=== PATIENT | female | born 1985 | race Caucasian/White ===

== ENCOUNTER 2016-11-17 13:51 | Emergency (ER) | payer OTHER ==
[~2016-11-17] VITALS: Ht 165.1 cm; Wt 100.0 kg
[~2016-11-17 13:51] MED LIST: CIPRO500 MG OR; FLOXIN OTIC OT; LORTAB 5 OR; LORTAB 5-325 MG1 TAB PO; PHENERGAN25 MG/TAB PO; ULTRAM50 M1 PO; ZITHROMAX250 MG PO
[2016-11-17 15:32] LABS: HEMATOCRIT 41.8 % (37.0-47.0); HEMOGLOBIN 13.8 g/dl (12.0-16.0); IMMATURE GRANULOCYTES 0.3 % (0.0-1.0); MEAN CELL VOLUME 87.3 fL CALC (80.0-100.0); MEAN CORPUSCULAR HGB 28.8 pG CALC (26.0-32.0); NEUT# 7.58 thou/uL (2.00-7.15); RED BLOOD COUNT 4.79 mill/uL (4.20-5.60)
[2016-11-17 15:44] LABS: ALBUMIN 4.2 g/dL (3.2-5.0); ALKALINE PHOSPHATASE 100 u/l (38-126); ANION GAP 17 (6-22 (CALC)); BILIRUBIN, TOTAL 0.6 mg/dL (0.0-1.4); BUN 11 mg/dL (7-17); BUN/CREATININE RATIO 14 (12-20 (CALC)); CALCIUM 9.2 mg/dL (8.4-10.2); CARBON DIOXIDE 23 mmol/l (22-30); CHLORIDE 104 mmol/l (95-108); CREATININE 0.7 mg/dL (0.5-1.0); GFR > 60 ML/MIN (>=60 (CALC)); GFR FOR AFR.AMER. > 60 ML/MIN (>=60 (CALC)); GLUCOSE 84 mg/dL (65-105); POTASSIUM 4.5 mmol/l (3.5-5.1); SGOT/AST 49 u/l (14-36); SGPT/ALT 55 u/l (9-52); SODIUM 139 mmol/l (137-146); TOTAL PROTEIN 7.4 g/dL (6.3-8.2)
[2016-11-17 18:48] VITALS: BP 118/74
[2016-11-17] MEDS ORDERED: IBUPROFEN600 MG PO (18:51)
== END 2016-11-17 19:01 | disposition home or self-care (01) | DRG 605 ==
LOC: ED 13:51
PROVIDERS: Emergency Medicine
DX: S00.83XA Contusion of other part of head, initial encounter (principal); S63.91XA Sprain of unspecified part of right wrist and hand, initial encounter; S50.11XA Contusion of right forearm, initial encounter; S60.221A Contusion of right hand, initial encounter; V49.59XA Passenger injured in collision with other motor vehicles in traffic accident, initial encounter; Y92.414 Local residential or business street as the place of occurrence of the external cause

== ENCOUNTER 2016-11-19 15:21 | Emergency (ER) | payer OTHER ==
[~2016-11-19] VITALS: Ht 165.1 cm; Wt 107.0 kg
[~2016-11-19 15:21] MED LIST changes: +IBUPROFEN600 MG PO
[2016-11-19] MEDS ORDERED: FOLIC ACID1 MG PO (15:32)
[2016-11-19] MEDS ORDERED: B121000 MCG PO (15:33)
[2016-11-19 16:08] VITALS: BP 125/60
[2016-11-19] MEDS ORDERED: LORTAB 5-325 MG1 TAB PO (16:22)
== END 2016-11-19 16:08 | disposition home or self-care (01) | DRG 950 ==
LOC: ED 15:21
DX: S63.91XD Sprain of unspecified part of right wrist and hand, subsequent encounter (principal); V59.5 Passenger in pick-up truck or van injured in collision with other and unspecified motor vehicles in traffic accident

== ENCOUNTER 2017-01-09 12:55 | Emergency (ER) | payer OTHER ==
[~2017-01-09] VITALS: Ht 165.1 cm; Wt 107.0 kg
[~2017-01-09 12:55] MED LIST changes: +B121000 MCG PO; +FOLIC ACID1 MG PO
[2017-01-09 13:39] LABS: URINE BILIRUBIN - DIPSTICK NEGATIVE (NEGATIVE); URINE BLOOD DIPSTICK TRACE-INTACT (NEGATIVE); URINE CLARITY CLEAR; URINE COLOR YELLOW; URINE GLUCOSE - DIPSTICK NEGATIVE (NEGATIVE); URINE KETONE NEGATIVE (NEGATIVE); URINE LEUK ESTERASE NEGATIVE (NEGATIVE); URINE NITRITE - DIPSTICK NEGATIVE (Negative); URINE PROTEIN - DIPSTICK NEGATIVE (NEG-TRACE); URINE SPECIFIC GRAVITY 1.025; URINE UROBILINOGEN - DIPSTICK 0.2 E.U./dL (0.2)
[2017-01-09 13:56] LABS: INFLUENZA A NONE DETECTED (NONE DETECT); INFLUENZA B NONE DETECTED (NONE DETECT)
[2017-01-09] MEDS ORDERED: AMOXICILLIN500 MG PO (14:09)
[2017-01-09 14:10] VITALS: BP 124/76
== END 2017-01-09 14:10 | disposition home or self-care (01) | DRG 153 ==
LOC: ED 12:55
PROVIDERS: Emergency Medicine
DX: J02.0 Streptococcal pharyngitis (principal); F17.210 Nicotine dependence, cigarettes, uncomplicated; R11.2 Nausea with vomiting, unspecified; R19.7 Diarrhea, unspecified

== ENCOUNTER 2017-01-16 10:53 | Emergency (ER) | payer OTHER ==
[~2017-01-16] VITALS: Ht 165.1 cm; Wt 60.0 kg
[~2017-01-16 10:53] MED LIST changes: +AMOXICILLIN500 MG PO
[2017-01-16] MEDS ORDERED: PHENERGAN25 MG/TAB PO (13:03)
[2017-01-16] MEDS ORDERED: ROBITUSSIN AC10 ML PO (13:03)
[2017-01-16] MEDS ORDERED: KEFLEX500 M1 PO (13:03)
[2017-01-16 13:18] VITALS: BP 131/76
== END 2017-01-16 13:18 | disposition home or self-care (01) | DRG 153 ==
LOC: ED 10:53
DX: J06.9 Acute upper respiratory infection, unspecified (principal); I88.9 Nonspecific lymphadenitis, unspecified; F90.9 Attention-deficit hyperactivity disorder, unspecified type; F31.9 Bipolar disorder, unspecified; F17.210 Nicotine dependence, cigarettes, uncomplicated

== ENCOUNTER 2018-03-02 23:23 | Emergency (ER) | payer OTHER ==
[~2018-03-02] VITALS: Ht 165.1 cm; Wt 103.0 kg
[~2018-03-02 23:23] MED LIST changes: +KEFLEX500 M1 PO; +ROBITUSSIN AC10 ML PO
[2018-03-03 01:12] LABS: HEMATOCRIT 40.6 % (37.0-47.0); HEMOGLOBIN 13.5 g/dl (12.0-16.0); IMMATURE GRANULOCYTES 0.3 % (0.0-1.0); MEAN CELL VOLUME 87.3 fL CALC (80.0-100.0); MEAN CORPUSCULAR HGB CONC 33.3 g/L CALC (32.0-36.0); NEUT# 5.02 thou/uL (2.00-7.15); RED BLOOD COUNT 4.65 mill/uL (4.20-5.60); RED CELL DISTRI WIDTH 13.5 % (11.5-15.5)
[2018-03-03 01:13] LABS: URINE BILIRUBIN - DIPSTICK NEGATIVE (NEGATIVE); URINE BLOOD DIPSTICK NEGATIVE (NEGATIVE); URINE COLOR YELLOW; URINE GLUCOSE - DIPSTICK NEGATIVE (NEGATIVE); URINE KETONE NEGATIVE (NEGATIVE); URINE LEUK ESTERASE NEGATIVE (NEGATIVE); URINE NITRITE - DIPSTICK NEGATIVE (Negative); URINE PH 7.5 (4.5-8.0); URINE PROTEIN - DIPSTICK NEGATIVE (NEG-TRACE); URINE SPECIFIC GRAVITY 1.015; URINE UROBILINOGEN - DIPSTICK 0.2 E.U./dL (0.2)
[2018-03-03 01:17] LABS: URINE CLARITY HAZY
[2018-03-03 01:29] LABS: ALBUMIN 3.9 g/dL (3.2-5.0); ALKALINE PHOSPHATASE 89 u/l (38-126); AMYLASE 50 u/l (30-110); ANION GAP 10 (6-22 (CALC)); BILIRUBIN, TOTAL 0.2 mg/dL (0.0-1.4); BUN 11 mg/dL (7-17); BUN/CREATININE RATIO 11 (12-20 (CALC)); CARBON DIOXIDE 27 mmol/l (22-30); CHLORIDE 108 mmol/l (95-108); GFR > 60 ML/MIN (>=60 (CALC)); GFR FOR AFR.AMER. > 60 ML/MIN (>=60 (CALC)); LIPASE 86 u/l (23-300); POTASSIUM 3.6 mmol/l (3.5-5.1); SGOT/AST 20 u/l (14-36); SGPT/ALT 39 u/l (9-52); SODIUM 142 mmol/l (137-146); TOTAL PROTEIN 6.9 g/dL (6.3-8.2)
[2018-03-03] MEDS ORDERED: PERCOCET 5/325M1 TAB PO (06:52)
[2018-03-03 07:01] VITALS: BP 92/55
== END 2018-03-03 07:01 | disposition home or self-care (01) | DRG 761 ==
LOC: ED 23:23
PROVIDERS: Emergency Medicine
DX: N83.201 Unspecified ovarian cyst, right side (principal); R10.9 Unspecified abdominal pain; J45.909 Unspecified asthma, uncomplicated; F17.210 Nicotine dependence, cigarettes, uncomplicated
CPT/HCPCS: Q9967

== ENCOUNTER 2018-03-07 23:42 | Emergency (ER) | payer OTHER ==
[~2018-03-07] VITALS: Ht 165.1 cm; Wt 106.8 kg
[~2018-03-07 23:42] MED LIST changes: +PERCOCET 5/325M1 TAB PO
[2018-03-08] MEDS ORDERED: MOTRIN800 MG PO (00:24)
[2018-03-08 00:40] VITALS: BP 117/76
== END 2018-03-08 00:45 | disposition home or self-care (01) | DRG 538 ==
LOC: ED 23:42
DX: S76.911A Strain of unspecified muscles, fascia and tendons at thigh level, right thigh, initial encounter (principal); M25.551 Pain in right hip; J45.909 Unspecified asthma, uncomplicated; N83.209 Unspecified ovarian cyst, unspecified side; F17.210 Nicotine dependence, cigarettes, uncomplicated; X50.0XXA Overexertion from strenuous movement or load, initial encounter; Z87.442 Personal history of urinary calculi

== ENCOUNTER 2018-05-20 23:03 | Emergency (ER) | payer OTHER ==
[~2018-05-20] VITALS: Ht 167.6 cm; Wt 104.6 kg
[~2018-05-20 23:03] MED LIST changes: +MOTRIN800 MG PO
[2018-05-21 00:10] LABS: HEMATOCRIT 44.6 % (37.0-47.0); HEMOGLOBIN 14.8 g/dl (12.0-16.0); IMMATURE GRANULOCYTES 0.3 % (0.0-5.0); MEAN CELL VOLUME 89.4 fL CALC (80.0-100.0); MEAN CORPUSCULAR HGB 29.7 pG CALC (26.0-32.0); MEAN CORPUSCULAR HGB CONC 33.2 g/L CALC (32.0-36.0); NEUT# 6.49 thou/uL (2.00-7.15); RED BLOOD COUNT 4.99 mill/uL (4.20-5.60); RED CELL DISTRI WIDTH 13.2 % (11.5-15.5)
[2018-05-21 00:12] LABS: URINE BILIRUBIN - DIPSTICK NEGATIVE (NEGATIVE); URINE BLOOD DIPSTICK NEGATIVE (NEGATIVE); URINE COLOR YELLOW; URINE GLUCOSE - DIPSTICK NEGATIVE (NEGATIVE); URINE KETONE NEGATIVE (NEGATIVE); URINE LEUK ESTERASE NEGATIVE (NEGATIVE); URINE NITRITE - DIPSTICK NEGATIVE (Negative); URINE PROTEIN - DIPSTICK NEGATIVE (NEG-TRACE); URINE SPECIFIC GRAVITY 1.015; URINE UROBILINOGEN - DIPSTICK 0.2 E.U./dL (0.2)
[2018-05-21 00:14] LABS: URINE CLARITY SL CLOUDY
[2018-05-21 00:21] LABS: ALBUMIN 4.1 g/dL (3.2-5.0); ALKALINE PHOSPHATASE 88 u/l (38-126); AMYLASE 53 u/l (30-110); ANION GAP 18 (6-22 (CALC)); BILIRUBIN, TOTAL 0.4 mg/dL (0.0-1.4); BUN 12 mg/dL (7-17); BUN/CREATININE RATIO 18 (12-20 (CALC)); CARBON DIOXIDE 20 mmol/l (22-30); CHLORIDE 111 mmol/l (95-108); CREATININE 0.7 mg/dL (0.5-1.0); GFR > 60 ML/MIN (>=60 (CALC)); GFR FOR AFR.AMER. > 60 ML/MIN (>=60 (CALC)); LIPASE 63 u/l (23-300); POTASSIUM 4.5 mmol/l (3.5-5.1); SGOT/AST 19 u/l (14-36); SGPT/ALT 23 u/l (9-52); SODIUM 144 mmol/l (137-146); TOTAL PROTEIN 7.4 g/dL (6.3-8.2)
[2018-05-21] MEDS ORDERED: BENTYL10 MG PO (00:59)
[2018-05-21] MEDS ORDERED: MIRALAX3350 N1 PO (00:59)
[2018-05-21 01:29] VITALS: BP 110/70
== END 2018-05-21 01:29 | disposition home or self-care (01) ==
LOC: ED 23:03
PROVIDERS: Family Medicine
DX: K59.00 Constipation, unspecified (principal); J45.909 Unspecified asthma, uncomplicated; Z87.442 Personal history of urinary calculi; Z87.440 Personal history of urinary (tract) infections; F17.210 Nicotine dependence, cigarettes, uncomplicated; R10.31 Right lower quadrant pain; R10.11 Right upper quadrant pain; R11.0 Nausea

== ENCOUNTER 2018-06-16 16:17 | Emergency (ER) | payer OTHER ==
[~2018-06-16] VITALS: Ht 167.6 cm; Wt 107.1 kg
[~2018-06-16 16:17] MED LIST changes: +BENTYL10 MG PO; +MIRALAX3350 N1 PO
[2018-06-16] MEDS ORDERED: ZITHROMAX250 MG PO (16:47)
[2018-06-16] MEDS ORDERED: PROVENTIL108 MCG/AC IN (16:47)
[2018-06-16 16:50] VITALS: BP 112/64
== END 2018-06-16 16:50 | disposition home or self-care (01) ==
LOC: ED 16:17
DX: J20.9 Acute bronchitis, unspecified (principal); J02.9 Acute pharyngitis, unspecified; J45.909 Unspecified asthma, uncomplicated; F17.210 Nicotine dependence, cigarettes, uncomplicated; R05 Cough

== ENCOUNTER 2018-09-14 16:37 | Emergency (ER) | payer OTHER ==
[~2018-09-14] VITALS: Ht 167.6 cm; Wt 107.6 kg
[~2018-09-14 16:37] MED LIST changes: +PROVENTIL108 MCG/AC IN
[2018-09-14 18:06] VITALS: BP 123/87
== END 2018-09-14 18:09 | disposition home or self-care (01) ==
LOC: ED 16:37
DX: S63.601A Unspecified sprain of right thumb, initial encounter (principal); F17.210 Nicotine dependence, cigarettes, uncomplicated; N91.2 Amenorrhea, unspecified; X50.3XXA Overexertion from repetitive movements, initial encounter

== ENCOUNTER 2018-09-28 16:58 | Emergency (ER) | payer OTHER ==
[~2018-09-28] VITALS: Ht 167.6 cm; Wt 100.0 kg
[2018-09-28] MEDS ORDERED: TESSALON PERLE100 MG PO (18:43)
[2018-09-28] MEDS ORDERED: ZITHROMAX500 MG PO (18:43)
[2018-09-28] MEDS ORDERED: VENTOLIN HFA IN (18:43)
[2018-09-28] MEDS ORDERED: PREDNISONE20 MG PO (18:44)
[2018-09-28 18:58] VITALS: BP 112/79
== END 2018-09-28 18:58 | disposition home or self-care (01) ==
LOC: ED 16:58
DX: R05 Cough (principal); J02.9 Acute pharyngitis, unspecified; R50.9 Fever, unspecified; F31.9 Bipolar disorder, unspecified; F17.210 Nicotine dependence, cigarettes, uncomplicated; R06.2 Wheezing; R09.81 Nasal congestion

== ENCOUNTER 2018-11-12 21:17 | Emergency (ER) | payer OTHER ==
[~2018-11-12] VITALS: Ht 167.6 cm; Wt 97.7 kg
[~2018-11-12 21:17] MED LIST changes: +PREDNISONE20 MG PO; +TESSALON PERLE100 MG PO; +VENTOLIN HFA IN; +ZITHROMAX500 MG PO
[2018-11-12 22:11] LABS: HEMATOCRIT 43.4 % (37.0-47.0); HEMOGLOBIN 14.1 g/dl (12.0-16.0); IMMATURE GRANULOCYTES 0.4 % (0.0-5.0); MEAN CELL VOLUME 88.6 fL CALC (80.0-100.0); MEAN CORPUSCULAR HGB 28.8 pG CALC (26.0-32.0); MEAN CORPUSCULAR HGB CONC 32.5 g/L CALC (32.0-36.0); NEUT# 3.69 thou/uL (2.00-7.15); RED BLOOD COUNT 4.9 mill/uL (4.20-5.60); RED CELL DISTRI WIDTH 13.2 % (11.5-15.5)
[2018-11-12 22:13] LABS: URINE BILIRUBIN - DIPSTICK NEGATIVE (NEGATIVE); URINE BLOOD DIPSTICK NEGATIVE (NEGATIVE); URINE COLOR YELLOW; URINE GLUCOSE - DIPSTICK NEGATIVE (NEGATIVE); URINE KETONE NEGATIVE (NEGATIVE); URINE LEUK ESTERASE NEGATIVE (NEGATIVE); URINE NITRITE - DIPSTICK NEGATIVE (Negative); URINE PROTEIN - DIPSTICK NEGATIVE (NEG-TRACE); URINE SPECIFIC GRAVITY >=1.030; URINE UROBILINOGEN - DIPSTICK 0.2 E.U./dL (0.2)
[2018-11-12 22:25] LABS: ALBUMIN 3.9 g/dL (3.2-5.0); ALKALINE PHOSPHATASE 68 u/l (38-126); AMYLASE 39 u/l (30-110); ANION GAP 11 (6-22 (CALC)); BILIRUBIN, TOTAL 0.5 mg/dL (0.0-1.4); BUN 7 mg/dL (7-17); BUN/CREATININE RATIO 9 (12-20 (CALC)); CARBON DIOXIDE 26 mmol/l (22-30); CHLORIDE 106 mmol/l (95-108); CREATININE 0.8 mg/dL (0.5-1.0); GFR > 60 ML/MIN (>=60 (CALC)); GFR FOR AFR.AMER. > 60 ML/MIN (>=60 (CALC)); LIPASE 46 u/l (23-300); POTASSIUM 4.1 mmol/l (3.5-5.1); SGOT/AST 20 u/l (14-36); SODIUM 139 mmol/l (137-146); TOTAL PROTEIN 6.9 g/dL (6.3-8.2)
[2018-11-13] MEDS ORDERED: NAPROSYN500 MG PO (00:11)
[2018-11-13 00:37] VITALS: BP 121/84
== END 2018-11-13 00:33 | disposition home or self-care (01) ==
LOC: ED 21:17
PROVIDERS: Emergency Medicine
DX: R10.12 Left upper quadrant pain (principal); R10.11 Right upper quadrant pain; R10.811 Right upper quadrant abdominal tenderness; N83.202 Unspecified ovarian cyst, left side

== ENCOUNTER 2019-02-12 12:32 | Emergency (ER) | payer OTHER ==
[~2019-02-12] VITALS: Ht 167.6 cm; Wt 82.0 kg
[~2019-02-12 12:32] MED LIST changes: +NAPROSYN500 MG PO
[2019-02-12] MEDS ORDERED: ORPHENADRINE100 MG PO (13:53)
[2019-02-12] MEDS ORDERED: FIORICET PO (13:53)
[2019-02-12 14:17] VITALS: BP 110/70
== END 2019-02-12 14:22 | disposition home or self-care (01) ==
LOC: ED 12:32
DX: S16.1XXA Strain of muscle, fascia and tendon at neck level, initial encounter (principal); F17.210 Nicotine dependence, cigarettes, uncomplicated; W22.8XXA Striking against or struck by other objects, initial encounter; Y93.I1 Activity, roller coaster riding; R51 Headache

== ENCOUNTER 2019-12-15 | Emergency (ER) | payer OTHER ==
[~2019-12-15] MED LIST changes: +FIORICET PO; +ORPHENADRINE100 MG PO
== END 2019-12-15 20:10 | disposition home or self-care (01) ==
DX: S00.35XA Superficial foreign body of nose, initial encounter (principal); F17.210 Nicotine dependence, cigarettes, uncomplicated; X58.XXXA Exposure to other specified factors, initial encounter

== ENCOUNTER 2021-02-10 12:03 | Emergency (ER) | payer OTHER ==
[~2021-02-10] VITALS: Ht 167.6 cm; Wt 91.0 kg
[2021-02-10] MEDS ORDERED: TOPIRAMATE100 MG PO (12:19)
[2021-02-10 12:30] LABS: HEMATOCRIT 44.4 % (37.0-47.0); HEMOGLOBIN 14.3 g/dl (12.0-16.0); IMMATURE GRANULOCYTES 0.4 % (0.0-5.0); MEAN CELL VOLUME 88.4 fL CALC (80.0-100.0); MEAN CORPUSCULAR HGB 28.5 pG CALC (26.0-32.0); MEAN CORPUSCULAR HGB CONC 32.2 g/dL CAL (32.0-36.0); NEUT# 3.21 thou/uL (2.00-7.15); RED BLOOD COUNT 5.02 mill/uL (4.20-5.60)
[2021-02-10 12:38] LABS: ALKALINE PHOSPHATASE 81 u/l (38-126); BILIRUBIN, TOTAL 0.3 mg/dL (0.0-1.4); BUN 9 mg/dL (7-17); BUN/CREATININE RATIO 12 (12-20 (CALC)); CHLORIDE 110 mmol/l (95-108); CREATININE 0.7 mg/dL (0.5-1.0); GFR > 60 ML/MIN (>=60 (CALC)); GFR FOR AFR.AMER. > 60 ML/MIN (>=60 (CALC)); LIPASE 52 u/l (23-300); POTASSIUM 3.9 mmol/l (3.5-5.1); SGOT/AST 26 u/l (14-36); SODIUM 138 mmol/l (137-146); TOTAL PROTEIN 7.5 g/dL (6.3-8.2)
[2021-02-10 12:39] LABS: ANION GAP 12 (6-22 (CALC)); CARBON DIOXIDE 20 mmol/l (22-30)
[2021-02-10 13:00] LABS: GFR > 60 ML/MIN (>=60 (CALC)); GFR FOR AFR.AMER. > 60 ML/MIN (>=60 (CALC))
[2021-02-10 13:54] VITALS: BP 107/73
== END 2021-02-10 14:00 | disposition home or self-care (01) | DRG 90 ==
LOC: ED 12:03
PROVIDERS: Family Medicine
DX: S06.0X9A Concussion with loss of consciousness of unspecified duration, initial encounter (principal); R10.11 Right upper quadrant pain; F31.9 Bipolar disorder, unspecified; J45.909 Unspecified asthma, uncomplicated; F17.200 Nicotine dependence, unspecified, uncomplicated; V57.6XXA Passenger in pick-up truck or van injured in collision with fixed or stationary object in traffic accident, initial encounter
CPT/HCPCS: Q9967

== ENCOUNTER 2021-03-10 20:25 | Emergency (ER) | payer OTHER ==
[~2021-03-10] VITALS: Ht 167.6 cm; Wt 79.5 kg
[~2021-03-10 20:25] MED LIST changes: +TOPIRAMATE100 MG PO
[2021-03-10 21:40] LABS: HEMATOCRIT 45.9 % (37.0-47.0); IMMATURE GRANULOCYTES 0.1 % (0.0-5.0); MEAN CELL VOLUME 88.3 fL CALC (80.0-100.0); MEAN CORPUSCULAR HGB 28.8 pG CALC (26.0-32.0); MEAN CORPUSCULAR HGB CONC 32.7 g/dL CAL (32.0-36.0); NEUT# 5.13 thou/uL (2.00-7.15); RED BLOOD COUNT 5.2 mill/uL (4.20-5.60); RED CELL DISTRI WIDTH 13.2 % (11.5-15.5)
[2021-03-10 21:44] LABS: URINE BILIRUBIN - DIPSTICK NEGATIVE (NEGATIVE); URINE BLOOD DIPSTICK NEGATIVE (NEGATIVE); URINE COLOR YELLOW; URINE GLUCOSE - DIPSTICK NEGATIVE (NEGATIVE); URINE KETONE NEGATIVE (NEGATIVE); URINE LEUK ESTERASE NEGATIVE (NEGATIVE); URINE PH 5.5 (4.5-8.0); URINE PROTEIN - DIPSTICK NEGATIVE (NEG-TRACE); URINE SPECIFIC GRAVITY >=1.030; URINE UROBILINOGEN - DIPSTICK 0.2 E.U./dL (0.2)
[2021-03-10 21:46] LABS: HCG SERUM/URINE (NEG/POS) NEGATIVE (NEGATIVE)
[2021-03-10 21:50] LABS: URINE NITRITE - DIPSTICK NEGATIVE (Negative)
[2021-03-10 21:58] LABS: ALBUMIN 4.4 g/dL (3.2-5.0); ALKALINE PHOSPHATASE 92 u/l (38-126); AMYLASE 73 u/l (30-110); ANION GAP 14 (6-22 (CALC)); BILIRUBIN, TOTAL 0.3 mg/dL (0.0-1.4); BUN 8 mg/dL (7-17); BUN/CREATININE RATIO 10 (12-20 (CALC)); CHLORIDE 103 mmol/l (95-108); CREATININE 0.8 mg/dL (0.5-1.0); GFR > 60 ML/MIN (>=60 (CALC)); GFR FOR AFR.AMER. > 60 ML/MIN (>=60 (CALC)); LIPASE 62 u/l (23-300); POTASSIUM 3.5 mmol/l (3.5-5.1); SGOT/AST 29 u/l (14-36); SODIUM 138 mmol/l (137-146); TOTAL PROTEIN 8.5 g/dL (6.3-8.2)
[2021-03-10 22:01] LABS: CARBON DIOXIDE 25 mmol/l (22-30)
[2021-03-10] MEDS ORDERED: PHENERGAN25 MG/TAB PO (22:42)
[2021-03-10] MEDS ORDERED: PREVACID30 M3 PO (22:42)
[2021-03-10 23:19] VITALS: BP 99/60
== END 2021-03-10 23:21 | disposition home or self-care (01) ==
LOC: ED 20:25
PROVIDERS: Emergency Medicine
DX: K52.9 Noninfective gastroenteritis and colitis, unspecified (principal); K29.70 Gastritis, unspecified, without bleeding; J45.909 Unspecified asthma, uncomplicated; F31.9 Bipolar disorder, unspecified; F79 Unspecified intellectual disabilities; Z20.822 Contact with and (suspected) exposure to COVID-19
CPT/HCPCS: Q9967

== ENCOUNTER 2021-04-15 01:18 | Emergency (ER) | payer OTHER ==
[~2021-04-15 01:18] MED LIST changes: +PREVACID30 M3 PO
[2021-04-15 02:41] LABS: HEMATOCRIT 43.1 % (37.0-47.0); IMMATURE GRANULOCYTES 0.2 % (0.0-5.0); MEAN CELL VOLUME 90.9 fL CALC (80.0-100.0); MEAN CORPUSCULAR HGB 29.5 pG CALC (26.0-32.0); MEAN CORPUSCULAR HGB CONC 32.5 g/dL CAL (32.0-36.0); NEUT# 5.26 thou/uL (2.00-7.15); RED BLOOD COUNT 4.74 mill/uL (4.20-5.60); RED CELL DISTRI WIDTH 13.5 % (11.5-15.5)
[2021-04-15 02:52] LABS: ALBUMIN 3.8 g/dL (3.2-5.0); ALKALINE PHOSPHATASE 80 u/l (38-126); AMYLASE 49 u/l (30-110); ANION GAP 12 (6-22 (CALC)); BILIRUBIN, TOTAL 0.2 mg/dL (0.0-1.4); BUN 11 mg/dL (7-17); BUN/CREATININE RATIO 16 (12-20 (CALC)); CARBON DIOXIDE 24 mmol/l (22-30); CHLORIDE 106 mmol/l (95-108); CREATININE 0.7 mg/dL (0.5-1.0); GFR > 60 ML/MIN (>=60 (CALC)); GFR FOR AFR.AMER. > 60 ML/MIN (>=60 (CALC)); LIPASE 84 u/l (23-300); POTASSIUM 3.6 mmol/l (3.5-5.1); SGOT/AST 22 u/l (14-36); SODIUM 138 mmol/l (137-146); TOTAL PROTEIN 6.9 g/dL (6.3-8.2)
[2021-04-15 02:54] LABS: URINE BILIRUBIN - DIPSTICK NEGATIVE (NEGATIVE); URINE BLOOD DIPSTICK NEGATIVE (NEGATIVE); URINE COLOR YELLOW; URINE GLUCOSE - DIPSTICK NEGATIVE (NEGATIVE); URINE KETONE NEGATIVE (NEGATIVE); URINE LEUK ESTERASE NEGATIVE (NEGATIVE); URINE PH 7.5 (4.5-8.0); URINE PROTEIN - DIPSTICK NEGATIVE (NEG-TRACE); URINE UROBILINOGEN - DIPSTICK 0.2 E.U./dL (0.2)
[2021-04-15 02:57] LABS: URINE NITRITE - DIPSTICK NEGATIVE (Negative)
[2021-04-15] MEDS ORDERED: PROTONIX40 M2 PO (03:29)
[2021-04-15 03:57] VITALS: BP 108/69
== END 2021-04-15 03:58 | disposition home or self-care (01) ==
LOC: ED 01:18
PROVIDERS: Family Medicine
DX: K29.70 Gastritis, unspecified, without bleeding (principal); J45.909 Unspecified asthma, uncomplicated; F31.9 Bipolar disorder, unspecified; F79 Unspecified intellectual disabilities; F17.200 Nicotine dependence, unspecified, uncomplicated